=== PATIENT | female | born 1985 | race Caucasian/White ===

== ENCOUNTER 2022-03-27 18:58 | Emergency (ER) | payer OTHER ==
[2022-03-27 19:07] VITALS: BP 156/74; PULSE 122; RESP 20; TEMP 98.1
--- NOTE | 2022-03-27 22:05 | XR ---
EXAMINATION TYPE: XR chest 2V DATE OF EXAM: 03/27/2022 COMPARISON: July 2011 HISTORY: Cough TECHNIQUE: FINDINGS: Heart and mediastinum are normal. Lungs are clear. Diaphragm is normal. Bony thorax appears normal. IMPRESSION: Normal chest. No change.
[2022-03-27] MEDS ORDERED: predniSONE 20 MG TAB PO STA (22:28)
== END 2022-03-27 22:49 | disposition left against medical advice (07) ==
LOC: EC 18:58
DX: Z53.21 Procedure and treatment not carried out due to patient leaving prior to being seen by health care provider (principal)
CPT/HCPCS: 87502; 87635; 71046; 99499; J7512

== ENCOUNTER 2023-03-03 19:43 | Emergency (ER) | payer OTHER ==
[2023-03-03 19:52] VITALS: RESP 16
--- NOTE | 2023-03-03 19:52 | ED ---
Fever HPI - General Source: patient, RN notes reviewed Mode of arrival: ambulatory Limitations: no limitations - History of Present Illness MD Complaint: fever <Tracy Gonzalez - Last Filed: 03/03/23 19:49> <Panchito Carpio - Last Filed: 03/03/23 21:55> - General Chief Complaint: Fever Stated Complaint: fever Time Seen by Provider: 03/03/23 19:48 - History of Present Illness Initial Comments: This is a 37 year old female who presents to the emergency department for coughing, congestion, headaches, body aches, and a sore throat. Symptoms started yesterday. She has now developed a productive cough that she states is making it hard to breathe. (Tracy Gonzalez) Dictation was produced using [employer] dictation software. please excuse any grammatical, word or spelling errors. Chief Complaint: 37-year-old female with fever and nasal congestion and cough History of Present Illness: 37-year-old female she has no significant comorbidities presents to the emergency department for one day of headache bodyaches fever no productive cough. Patient has no significant comorbidities. The ROS documented in this emergency department record has been reviewed and confirmed by me. Those systems with pertinent positive or negative responses have been documented in the HPI. All other systems are other negative and/or noncontributory. (Panchito Carpio) - Related Data Previous Rx's Medication Instructions Recorded predniSONE [Deltasone] 20 mg PO BID #8 tab 03/27/22 Azithromycin [Zithromax Z Pack] 1 tab PO DIRECTED #6 tab 03/03/23 Allergies Allergy/AdvReac Type Severity Reaction Status Date / Time grapefruit Allergy Anaphylaxis Verified 03/03/23 19:52 peach Allergy Anaphylaxis Verified 03/03/23 19:52 bee venom protein (honey bee) AdvReac Anaphylaxis Verified 03/03/23 19:52 Review of Systems ROS Other: All systems not noted in ROS Statement are negative. <Tracy Gonzalez - Last Filed: 03/03/23 19:49> ROS Other: All systems not noted in ROS Statement are negative. <Panchito Carpio - Last Filed: 03/03/23 21:55> ROS Statement: Those systems with pertinent positive or pertinent negative responses have been documented in the HPI. Past Medical History Past Medical History: No Reported History History of Any Multi-Drug Resistant Organisms: None Reported Additional Past Surgical History / Comment(s): hemrrhoidectomy d/c Past Psychological History: No Psychological Hx Reported Smoking Status: Current every day smoker Past Alcohol Use History: None Reported Past Drug Use History: None Reported <Tracy Gonzalez - Last Filed: 03/03/23 19:49> General Exam <Tracy Gonzalez - Last Filed: 03/03/23 19:49> <Panchito Carpio - Last Filed: 03/03/23 21:55> - General Exam Comments Initial Comments: Visual Physical Exam Vital signs reviewed General: Well-appearing, nontoxic, no acute distress. Head: Normocephalic, atraumatic Eyes: PERRLA, EOMI ENT: Airway patent Chest: Nonlabored breathing Skin: No visual rash, normal skin tone Neuro: Alert and oriented 3 Musculoskeletal: No gross abnormalities I performed the QuickNote portion of this chart. Signed Tracy Gonzalez PA-C. (Tracy Gonzalez) PHYSICAL EXAM: General Impression: Alert and oriented x3, not in acute distress HEENT: Normocephalic atraumatic, extra-ocular movements intact, pupils equal and reactive to light bilaterally, mucous membranes moist. Cardiovascular: Heart regular rate and rhythm Chest: Able to complete full sentences, no retractions, no tachypnea, clear to auscultation bilaterally Abdomen: abdomen soft, non-tender, non-distended, no organomegaly Musculoskeletal: Pulses present and equal in all extremities, no peripheral edema Motor: no focal deficits noted Neurological: CN II-XII grossly intact, no focal motor or sensory deficits noted Skin: Intact with no visualized rashes Psych: Normal affect and mood (Panchito Carpio) Course Vital Signs 03/03/23 19:49 Temperature 98.6 F Pulse Rate 92 Respiratory 16 Rate Blood Pressure 122/65 O2 Sat by Pulse 98 Oximetry Medical Decision Making <Panchito Carpio - Last Filed: 03/03/23 21:55> - Medical Decision Making Was pt. sent in by a medical professional or institution (, PA, POLICY DIRECTOR, urgent care, hospital, or skilled nursing...) When possible be specific @ -No Did you speak to anyone other than the patient for history (EMS, parent, family, police, friend...)? What history was obtained from this source @ -No Did you review nursing and triage notes (agree or disagree)? Why? @ -I reviewed and agree with nursing and triage notes Were old charts reviewed (outside hosp., previous admission, EMS record, old EKG, old radiological studies, urgent care reports/EKG's, skilled nursing records)? Report findings @ -No old charts were reviewed Differential Diagnosis (chest pain, altered mental status, abdominal pain women, abdominal pain men, vaginal bleeding, musculoskeletal, weakness, fever, dyspnea, syncope, headache, dizziness, GI bleed, back pain, seizure, CVA, palpatations, mental health)? @ -Differential Dyspnea: Coronary syndrome, arrhythmia, tamponade, asthma, COPD, pulmonary embolism, pneumonia, pneumothorax, pulmonary effusion, anaphylaxis, diabetic ketoacidosis, flailed chest, pulmonary contusion, diaphragmatic rupture, anemia, neuromuscular, this is not meant to be an all-inclusive list. EKG interpreted by me (3pts min.). @ -None done X-rays interpreted by me (1pt min.). @ -Chest x-ray is unremarkable for acute processes CT interpreted by me (1pt min.). @ -None done U/S interpreted by me (1pt. min.). @ -None done What testing was considered but not performed or refused? (CT, X-rays, U/S, labs)? Why? @ -None What meds were considered but not given or refused? Why? @ -None Did you discuss the management of the patient with other professionals (professionals i.e. , PA, POLICY DIRECTOR, lab, RT, psych nurse, delinquency prevention social worker, can conveyor feeder, teacher, retail loss prevention officer, manager rn case)? Give summary @ -No Was smoking cessation discussed for >3mins.? @ -No Was critical care preformed (if so, how long)? @ -No Were there social determinants of health that impacted care today? How? (Homelessness, low income, unemployed, alcoholism, drug addiction, transportation, low edu. Level, literacy, decrease access to med. care, longterm, rehab)? @ -No Was there de-escalation of care discussed even if they declined (Discuss DNR or withdrawal of care, Hospice)? DNR status @ -No What co-morbidities impacted this encounter? (DM, HTN, Smoking, COPD, CAD, Cancer, CVA, ARF, Chemo, Hep., AIDS, mental health diagnosis, sleep apnea, morbid obesity)? @ -None Was patient admitted / discharged? Hospital course, mention meds given and route, prescriptions, significant lab abnormalities, going to OR and other pertinent info. @ -37-year-old female presents emergency department for any focal. Consistent with URI. Patient is well-appearing. Vital signs stable. Physical examination is benign. Patient given prescription for antibiotics to take in a [id number] fashion. Undiagnosed new problem with uncertain prognosis? @ -No Drug Therapy requiring intensive monitoring for toxicity (Heparin, Nitro, Insulin, Cardizem)? @ -No Were any procedures done? @ -No Diagnosis/symptom? Acute, or Chronic, or Acute on Chronic? Uncomplicated (without systemic symptoms) or Complicated (systemic symptoms)? @ -Viral URI Side effects of treatment? @ -No Exacerbation, Progression, or Severe Exacerbation? @ -No Poses a threat to life or bodily function? How? (Chest pain, USA, MD, pneumonia, PE, COPD, DKA, ARF, appy, cholecystitis, CVA, Diverticulitis, Homicidal, Suicidal, threat to staff... and all critical care pts) @ -No (Panchito Carpio) - Lab Data Lab Results 03/03/23 03/03/23 Range/Units 19:52 19:52 Influenza Type A (PCR) Not Detected (Not Detectd) Influenza Type B (PCR) Not Detected (Not Detectd) RSV (PCR) Not Detected (Not Detectd) SARS-CoV-2 (PCR) Not Detected (Not Detectd) Group A Strep (PCR) NOT DETECTED (Not Detectd) Disposition <Tracy Gonzalez - Last Filed: 03/03/23 19:49> Is patient prescribed a controlled substance at d/c from ED?: No Time of Disposition: 21:55 <Panchito Carpio - Last Filed: 03/03/23 21:55> Clinical Impression: Viral URI Disposition: HOME SELF-CARE Condition: Good Instructions (If sedation given, give patient instructions): Upper Respiratory Infection (ED) Prescriptions: Azithromycin [Zithromax Z Pack] 1 tab PO DIRECTED #6 tab Referrals: None,Stated [Primary Care Provider] - 1-2 days
--- NOTE | 2023-03-03 20:24 | XR ---
EXAMINATION TYPE: XR chest 2V DATE OF EXAM: 03/03/2023 8:00 PM CLINICAL INDICATION:Female, 37 years old with history of Chest pain, KERRY; [facility] COMPARISON: Chest radiographs from 03/27/2022 TECHNIQUE: XR chest 2V Frontal and lateral views of the chest. FINDINGS: Lungs/Pleura: There is no evidence of pleural effusion, focal consolidation, or pneumothorax. Pulmonary vascularity: Unremarkable. Heart/mediastinum: Cardiomediastinal silhouette is unremarkable. Musculoskeletal: No acute osseous pathology. IMPRESSION: 1. No acute cardiopulmonary disease process.
[2023-03-03 22:19] VITALS: BP 118/74; PULSE 84; TEMP 98.1
== END 2023-03-03 22:18 | disposition home or self-care (01) ==
LOC: EC 19:43
DX: J06.9 Acute upper respiratory infection, unspecified (principal); F17.200 Nicotine dependence, unspecified, uncomplicated; Z91.030 Bee allergy status; Z91.018 Allergy to other foods; Z88.8 Allergy status to other drugs, medicaments and biological substances; Z20.822 Contact with and (suspected) exposure to COVID-19
CPT/HCPCS: 71046; 87636; 87651; 99283

== ENCOUNTER 2023-06-03 20:45 | Emergency (ER) | payer OTHER ==
--- NOTE | 2023-06-03 20:56 | ED ---
Chest Pain HPI <Wilfredo Sandoval - Last Filed: 06/04/23 01:08> - General Source: patient, RN notes reviewed, old records reviewed Mode of arrival: ambulatory Limitations: no limitations - History of Present Illness MD Complaint: chest pain -: hour(s) Pain Location: substernal, left chest Pain Radiation: jaw/teeth Severity: severe Consistency: constant Improves With: nothing Worsens With: nothing Anginal Symptoms: dyspnea, sense of impending doom Treatments Prior to Arrival: none <Rik Hodge - Last Filed: 06/10/23 11:17> - General Chief Complaint: Chest Pain Stated Complaint: Chest Pain,Sob Time Seen by Provider: 06/03/23 20:54 - History of Present Illness Initial Comments: This is a 37-year-old female Padmini today. Patient Dese for evaluation regards to chest pain significant chest pain left-sided chest pain anterior chest pain rating to her back rating to her, does admit to some significant anxiety but no shortness of breath. No fevers no travel show sick contacts (Rik Hodge) - Related Data Home Medications Medication Instructions Recorded Confirmed Escitalopram [Lexapro] 15 mg PO DAILY 06/03/23 06/03/23 Prazosin [Minipress] 1 mg PO HS 06/03/23 06/03/23 Allergies Allergy/AdvReac Type Severity Reaction Status Date / Time grapefruit Allergy Anaphylaxis Verified 06/03/23 21:55 peach Allergy Anaphylaxis Verified 06/03/23 21:55 bee venom protein (honey bee) AdvReac Anaphylaxis Verified 06/03/23 21:55 Review of Systems ROS Other: All systems not noted in ROS Statement are negative. <Wilfredo Sandoval - Last Filed: 06/04/23 01:08> ROS Other: All systems not noted in ROS Statement are negative. <Rik Hodge - Last Filed: 06/10/23 11:17> ROS Statement: Those systems with pertinent positive or pertinent negative responses have been documented in the HPI. Past Medical History Past Medical History: No Reported History History of Any Multi-Drug Resistant Organisms: None Reported Additional Past Surgical History / Comment(s): hemrrhoidectomy d/c Past Psychological History: Anxiety, Depression, PTSD Smoking Status: Current every day smoker Past Alcohol Use History: None Reported Past Drug Use History: None Reported <Rik Hodge - Last Filed: 06/10/23 11:17> General Exam Limitations: no limitations General appearance: alert, in no apparent distress, anxious Head exam: Present: atraumatic, normocephalic, normal inspection Eye exam: Present: normal appearance, PERRL, EOMI. Absent: scleral icterus, conjunctival injection, periorbital swelling ENT exam: Present: normal exam, mucous membranes moist Neck exam: Present: normal inspection. Absent: tenderness, meningismus, lymphadenopathy Respiratory exam: Present: normal lung sounds bilaterally. Absent: respiratory distress, wheezes, rales, rhonchi, stridor Cardiovascular Exam: Present: regular rate, normal rhythm, normal heart sounds. Absent: systolic murmur, diastolic murmur, rubs, gallop, clicks GI/Abdominal exam: Present: soft, normal bowel sounds. Absent: distended, tenderness, guarding, rebound, rigid Extremities exam: Present: normal inspection, full ROM, normal capillary refill. Absent: tenderness, pedal edema, joint swelling, calf tenderness Back exam: Present: normal inspection Neurological exam: Present: alert, oriented X3, CN II-XII intact Psychiatric exam: Present: normal affect, normal mood Skin exam: Present: warm, dry, intact, normal color. Absent: rash <Rik Hodge - Last Filed: 06/10/23 11:17> Course <Rik Hodge - Last Filed: 06/10/23 11:17> Vital Signs 06/03/23 06/03/23 06/04/23 20:46 23:33 00:53 Temperature 97.6 F Pulse Rate 85 90 80 Respiratory 18 16 14 Rate Blood Pressure 123/63 117/62 117/76 O2 Sat by Pulse 98 99 98 Oximetry 06/04/23 01:15 Temperature 97.8 F Pulse Rate 82 Respiratory 16 Rate Blood Pressure 112/60 O2 Sat by Pulse 97 Oximetry - Reevaluation(s) Reevaluation #1: 06/03/23 23:22 Medical record is reviewed (Rik Hodge) Reevaluation #2: Patient's pain is improved (Rik Hodge) Reevaluation #3: patient informed results questions answered Studies Chest x-ray and CT angios of chest is negative for acute disease (Rik Hodge) Reevaluation #4: 06/03/23 23:22 Was pt. sent in by a medical professional or institution (ITALO Pérez, TOOL MARKER, urgent care, hospital, or residential...) When possible be specific @ -no Did you speak to anyone other than the patient for history (EMS, parent, family, police, friend...)? What history was obtained from this source @ -no Did you review nursing and triage notes (agree or disagree)? Why? @ -agree Are old charts reviewed (outside hosp., previous admission, EMS record, old EKG, old radiological studies, urgent care reports/EKG's, residential records)? Report findings @ -yes Differential Diagnosis (chest pain, altered mental status, abdominal pain women, abdominal pain men, vaginal bleeding, weakness, fever, dyspnea, syncope, headache, dizziness, GI bleed, back pain, seizure, CVA, palpatations, mental health, musculoskeletal)? @ -prior EKG interpreted by me (3pts min.). @ -yes X-rays interpreted by me (1pt min.). @ -yes negative for acute disease CT interpreted by me (1pt min.). @ -yes negative for acute disease U/S interpreted by me (1pt. min.). @ -no What testing was considered but not performed or refused? (CT, X-rays, U/S, labs)? Why? @ -none What meds were considered but not given or refused? Why? @ -none Did you discuss the management of the patient with other professionals (professionals i.e. ITALO Pérez, TOOL MARKER, lab, RT, psych nurse, high school social studies teacher, plastic sheets supervisor, teacher, precinct commanding officer, medical case worker)? Give summary @ -no Was smoking cessation discussed for >3mins.? @ -no Was critical care preformed (if so, how long)? @ -no Were there social determinants of health that impacted care today? How? (Homelessness, low income, unemployed, alcoholism, drug addiction, transportation, low edu. Level, literacy, decrease access to med. care, detention, re hab)? @ -none Was there de-escalation of care discussed even if they declined (Discuss DNR or withdrawal of care, Hospice)? DNR status @ -no What co-morbidities impacted this encounter? (DM, HTN, Smoking, COPD, CAD, Cancer, CVA, ARF, Chemo, Hep., AIDS, mental health diagnosis, sleep apnea, morbid obesity)? @ -none Was patient admitted / discharged? Hospital course, mention meds given and route, prescriptions, significant lab abnormalities, going to OR and other pertinent info. @ - 37 female nonspecific chest pain. No acute distress, no significant risk factors and patient can be discharfed home Discharge Undiagnosed new problem with uncertain prognosis? @ -no Drug Therapy requiring intensive monitoring for toxicity (Heparin, Nitro, Insulin, Cardizem)? @ -no Were any procedures done? @ -no Diagnosis/symptom? @ -Chest pain Acute, or Chronic, or Acute on Chronic? @ -Acute Uncomplicated (without systemic symptoms) or Complicated (systemic symptoms)? @ -Complicated Side effects of treatment? @ -no Exacerbation, Progression, or Severe Exacerbation? @ -exacerbation Poses a threat to life or bodily function? How? (Chest pain, USA, [place], pneumonia, PE, COPD, DKA, ARF, appy, cholecystitis, CVA, Diverticulitis, Homicidal, Suicidal, threat to staff... and all critical care pts) @ -yes if ACS (Rik Hodge) Reevaluation #5: 06/03/23 23:22 Differential Chest Pain: Stable Angina, Unstable Angina, STEMI, NSTEMI Aortic Dissection, Pneumothorax, Musculoskeletal, Esophageal Spasm GERD, Cholecystitis, Pancreatitis, Zoster, this is not meant to be an all-inclusive list. (Rik Hodge) Chest Pain MDM <Rik Hodge - Last Filed: 06/10/23 11:17> - MDM 37 female nonspecific chest pain. No acute distress, no significant risk factors and patient can be discharfed home (Rik Hodge) Disposition Time of Disposition: 01:08 <Wilfredo Sandoval - Last Filed: 06/04/23 01:08> Is patient prescribed a controlled substance at d/c from ED?: No <Rik Hodge - Last Filed: 06/10/23 11:17> Clinical Impression: Atypical chest pain, Chest pain Disposition: HOME SELF-CARE Condition: Good Instructions (If sedation given, give patient instructions): Chest Pain (ED) Referrals: None,Stated [Primary Care Provider] - 1-2 days
[2023-06-03 22:09] LABS: Basophils % (A) 0 %; Eosinophils # (A) 0.3 k/uL (0-0.7); Eosinophils % (A) 3 %; HGB 15.2 gm/dL (11.4-16.0); Lymphocytes # (A) 2.2 k/uL (1.0-4.8); Lymphocytes % (A) 26 %; MCH 30.4 pg (25.0-35.0); Mean Platelet Volume 7.2; Monocytes # (A) 0.6 k/uL (0-1.0); Monocytes % (A) 7 %; Neutrophils # (A) 5.3 k/uL (1.3-7.7); Neutrophils % (A) 63 %; Platelet Count 307 k/uL (150-450); RDW 12.6 % (11.5-15.5); WBC 8.5 k/uL (3.8-10.6)
[2023-06-03 22:12] LABS: ALT 15 U/L (4-34); AST 23 U/L (14-36); African American GFR (CKD) >90 (>60 ml/min/1.73 sqM); Albumin 4.3 g/dL (3.5-5.0); Alkaline Phosphatase 73 U/L (38-126); Anion Gap 13 mmol/L; Blood Urea Nitrogen 17 mg/dL (7-17); Calcium 9.4 mg/dL (8.4-10.2); Carbon Dioxide 24 mmol/L (22-30); Chloride 101 mmol/L (98-107); Glucose 97 mg/dL (74-99); Lipase 181 U/L (23-300); Magnesium 1.8 mg/dL (1.6-2.3); Non-African American GFR(CKD) >90 (>60 ml/min/1.73 sqM); Sodium 138 mmol/L (137-145); Total Bilirubin 0.3 mg/dL (0.2-1.3)
[2023-06-03 22:16] LABS: INR 0.9 (<1.2); Partial Thromboplastin Time 27.2 sec (22.0-30.0); Prothrombin Time 10.5 sec (10.0-12.5)
[2023-06-03 22:20] LABS: NT-Pro-B-Type Natriuretic Pept <20 pg/mL
--- NOTE | 2023-06-03 23:46 | XR ---
EXAMINATION TYPE: XR chest 2V DATE OF EXAM: 06/03/2023 9:35 PM CLINICAL INDICATION:Female, 37 years old with history of Chest Pain; [facility] COMPARISON: Chest x-ray 03/03/2023 TECHNIQUE: XR chest 2V. Frontal PA and lateral views of the chest. FINDINGS: Lines/Tubes: Extrinsic densities over the chest. No indwelling lines are seen. Heart/mediastinum: Cardiomediastinal silhouette is well defined. Heart size is normal. Mediastinum appears normal. Pulmonary vascularity: Not increased, Lungs/Pleura: Lungs are questionably mildly hyperinflated, versus good inspiratory result/body habitu s. Mild chronic changes in the lungs. There is no evidence of pleural effusion, focal consolidation, or pneumothorax. Musculoskeletal: No acute osseous abnormality demonstrated in the limits of the exam. Other findings: None. IMPRESSION: No acute findings, or significant interval change.
--- NOTE | 2023-06-03 23:53 | CT ---
EXAM: CT Angiography Chest With Intravenous Contrast CLINICAL HISTORY: ITS.REASON CT Reason: cp TECHNIQUE: Axial computed tomographic angiography images of the chest with intravenous contrast. CTDI is 14.5 mGy and DLP is 203.1 mGy-cm. This CT exam was performed using one or more of the following dose reduction techniques: automated exposure control, adjustment of the mA and/or kV according to patient size, and/or use of iterative reconstruction technique. MIP reconstructed images were created and reviewed. COMPARISON: No relevant prior studies available. FINDINGS: Pulmonary arteries: Unremarkable. No pulmonary embolism. Aorta: No acute findings. No thoracic aortic aneurysm. Lungs: Unremarkable. No mass. No consolidation. Pleural space: Unremarkable. No significant effusion. No pneumothorax. Heart: Unremarkable. No cardiomegaly. No significant pericardial effusion. No evidence of RV dysfunction. Bones/joints: No acute fracture. No dislocation. Soft tissues: Unremarkable. Lymph nodes: Unremarkable. No enlarged lymph nodes. IMPRESSION: Normal chest CTA. No pulmonary embolism.
[2023-06-04 01:34] VITALS: BP 112/60; PULSE 82; RESP 16; TEMP 97.8
== END 2023-06-04 01:15 | disposition home or self-care (01) ==
LOC: EC 20:45
DX: R07.89 Other chest pain (principal); F41.9 Anxiety disorder, unspecified; F32.A Depression, unspecified; F17.200 Nicotine dependence, unspecified, uncomplicated; Z91.030 Bee allergy status; Z91.018 Allergy to other foods; Z88.8 Allergy status to other drugs, medicaments and biological substances; Z79.899 Other long term (current) drug therapy
CPT/HCPCS: 36415; 93005; 85379; 83880; 80053; 83690; 83735; 84484; 85025; 85610; 85730; 71046; 71275; 99285; Q9967

== ENCOUNTER 2023-08-11 12:47 | Emergency (ER) | payer OTHER ==
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
[2023-08-11] MEDS: ORPHENADRINE 30 MG/ML 2 ML VIAL IM STA (13:24)
[2023-08-11] MEDS: KETOROLAC 15 MG/ML 1 ML VIAL IM STA (13:24)
[2023-08-11] MEDS: LIDOCAINE 4% PATCH TOPICAL ONE (13:25)
--- NOTE | 2023-08-11 14:00 | XR ---
EXAMINATION TYPE: XR thoracic spine 2V DATE OF EXAM: 08/11/2023 COMPARISON: NONE HISTORY: Pain TECHNIQUE: 3 views submitted FINDINGS: Alignment is anatomic. There is no compression deformities. Vertebral body height and disc interspa liz are maintained. Slight scoliotic curvature. IMPRESSION: 1. No significant degenerative disc disease.
--- NOTE | 2023-08-11 14:08 | XR ---
EXAM TYPE: LUMBAR SPINE X RAY SERIES COMPARISON: NONE HISTORY: Pain TECHNIQUE: 4 views are submitted. FINDINGS: Alignment is anatomic. The pedicles are intact. The transverse processes are intact. There is no s pondylolysis or spondylolisthesis. Mild disc space narrowing L5-S1 IMPRESSION: 1. No acute process. 2. Mild degenerative disc disease L5-S1.
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
[2023-08-11 16:16] VITALS: BP 111/67; PULSE 72; RESP 12; TEMP 98.5
[2023-08-11] MEDS: traMADol 50 MG STARTER PACK 3 TAB BTL PO STA (16:16)
[2023-08-11] MEDS: IBUPROFEN 600 MG STARTER PACK 4 TAB BTL PO STA (16:17)
[2023-08-11] MEDS: HYDROmorphone 0.5 MG/0.5 ML SYRINGE IM STA (16:18)
== END 2023-08-11 16:24 | disposition home or self-care (01) ==
LOC: EC 12:47
DX: S16.1XXA Strain of muscle, fascia and tendon at neck level, initial encounter (principal); F41.9 Anxiety disorder, unspecified; F32.A Depression, unspecified; F17.200 Nicotine dependence, unspecified, uncomplicated; Z79.899 Other long term (current) drug therapy; Z91.018 Allergy to other foods; Z91.030 Bee allergy status; V89.2XXA Person injured in unspecified motor-vehicle accident, traffic, initial encounter; Y92.411 Interstate highway as the place of occurrence of the external cause
CPT/HCPCS: 72070; 72050; 72100; 72125; 70450; 99284; 96372 ×3; J2360; J1885; J1170

== ENCOUNTER → 2023-12-21 | Outpatient (CLI) | payer OTHER ==
[2023-12-21 15:09] LABS: Basophils # (A) 0.05 X 10*3/uL (0.00-0.10); Basophils % (A) 0.6 %; Eosinophils # (A) 0.28 X 10*3/uL (0.04-0.35); Eosinophils % (A) 3.6 %; HCT 47.2 % (37.2-46.3); HGB 14.1 g/dL (12.0-15.0); Lymphocytes # (A) 1.97 X 10*3/uL (0.90-5.00); MCH 28.8 pg (27.0-32.0); MCHC 29.9 g/dL (32.0-37.0); MCV 96.5 FL (80.0-97.0); Mean Platelet Volume 10.1 FL (9.5-12.2); Monocytes # (A) 0.67 X 10*3/uL (0.20-1.00); Monocytes % (A) 8.5 %; NRBC Per 100 WBC 0 X 10*3/uL (0.00-0.01); Neutrophils # (A) 4.88 X 10*3/uL (1.80-7.70); Platelet Count 307 X 10*3/uL (140-440); RBC 4.89 X 10*6/uL (4.10-5.20); RDW 12.9 % (11.5-14.5); WBC 7.87 X 10*3/uL (4.50-10.00)
[2023-12-21 15:54] LABS: ALT 11 U/L (8-44); AST 17 U/L (13-35); Albumin 4.3 g/dL (3.8-4.9); Albumin/Globulin Ratio 2.05 Ratio (1.60-3.17); Alkaline Phosphatase 75 U/L (41-126); Blood Urea Nitrogen 14.7 mg/dL (9.0-27.0); Calcium 9.7 mg/dL (8.7-10.3); Carbon Dioxide 25.6 mmol/L (21.6-31.8); Chloride 105 mmol/L (96-109); Chol/HDL Ratio 4.13 Ratio; Globulin 2.1 g/dL (1.6-3.3); Glucose 51 mg/dL (70-110); Potassium 4.7 mmol/L (3.5-5.5); Sodium 141 mmol/L (135-145); Total Bilirubin <0.2 mg/dL (0.3-1.2); Total Protein 6.4 g/dL (6.2-8.2)
== END | disposition home or self-care (01) ==
LOC: LABWHC1 08:18
PROVIDERS: ATTEND Nurse Practitioner Psychiatric/Mental Health
DX: F32.1 Major depressive disorder, single episode, moderate (principal); Z79.899 Other long term (current) drug therapy
CPT/HCPCS: 36415; 80053; 80061; 82306; 82607; 82746; 83036; 84439; 84443; 85025